=== PATIENT | female | born 2005 | race Caucasian/White ===

== ENCOUNTER → 2025-02-04 12:06 | Outpatient (CLI) | payer OTHER, SELFPAY ==
[2025-02-04 13:20] LABS: Influenza A - CEPHEID Flu A NEGATIVE (NEGATIVE); Influenza B - CEPHEID Flu B NEGATIVE (NEGATIVE); Respiratory Syncytial Virus Negative (Negative)
[2025-02-04 13:21] LABS: COVID-19 CEPHEID 4-PLEX PCR Negative (Negative)
== END ==
PROVIDERS: PCP Physician Assistant; Visit Provider Physician Assistant
DX: R05.9 Cough, unspecified (principal)
CPT/HCPCS: 0241U